=== PATIENT | male | born 1960 | race Caucasian/White ===

== ENCOUNTER 2016-10-31 20:43 | Emergency (ER) | payer OTHER ==
[~2016-10-31] VITALS: Ht 170.2 cm; Wt 70.3 kg
[2016-10-31 21:47] LABS: Basophils # (auto) 0.1 uL; Basophils % (auto) 0.8 % (0.0-2.0); CONDITION Y; Eosinophils # (auto) 0.4 uL; Eosinophils % (auto) 3.9 % (0.0-7.0); Hematocrit 48.1 % (41.0-53.0); Hemoglobin 16.4 g/dL (13.5-17.5); Lymphocytes # (auto) 3.6 uL; Lymphocytes % (auto) 34.4 % (10.0-50.0); Mean Corpuscular Hgb Conc. 34.1 g/dL (32.0-36.0); Mean Corpuscular Volume 93.8 fL (80.0-100.0); Mean Platelet Volume 7.9 fL (7.4-10.4); Monocytes # (auto) 0.9 uL; Monocytes % (auto) 8.7 % (0.0-12.0); Neutrophils # (auto) 5.5 uL; Neutrophils % (auto) 52.2 % (37.0-80.0); Platelet Count (auto) 393 10^3/uL (140-450); Red Cell Distribution Width 14.1 % (11.6-16.0); White Blood Cell 10.5 10^3/uL (4.4-10.8)
[2016-10-31 22:01] LABS: INR 0.92 (0.9-1.15); Partial Thromboplastin Time 27.5 sec (22.64-33.71)
[2016-10-31 22:04] LABS: Albumin 3.9 g/dL (3.4-5.0); Anion Gap 9 (5-15); Aspartate Aminotransferase 7 U/L (15-37); BUN/Creatinine Ratio 7.9; Blood Urea Nitrogen 7 mg/dL (7-18); Calcium 8.6 mg/dL (8.5-10.1); Carbon Dioxide 24 mmol/L (21-32); Chloride 106 mmol/L (98-107); GFR African American 114 mL/min; GFR Non-African American 94 mL/min; Glucose 82 mg/dL (74-106); Magnesium 2.4 mg/dL (1.6-2.6); Potassium 4.1 mmol/L (3.5-5.1); Sodium 139 mmol/L (136-145)
[2016-10-31 22:10] LABS: Alkaline Phosphatase 90 U/L (45-117); Bilirubin, Total 0.2 mg/dL (0.2-1.0); Total Protein 7.5 g/dL (6.4-8.2)
[2016-11-01 01:30] LABS: Urine Bilirubin Negative (Negative); Urine Blood Negative /uL (Negative); Urine Color Colorless (Yellow); Urine Glucose Normal (Normal); Urine Ketone Negative (Negative); Urine Nitrite Negative (Negative); Urine RBC 1 /hpf (0 - 3); Urine Urobilinogen Normal (Negative); Urine pH 6.5 (5.0-8.0)
[2016-11-01] MEDS ORDERED: ONDANSETRON HCL 4 MG/2 ML VIAL IV ONE (02:15)
[2016-11-01] MEDS ORDERED: MORPHINE SULFATE 4 MG/ML SYRG IV ONE (02:15)
[2016-11-01] MEDS ORDERED: HYDROmorphone HCL 2 MG/ML VL IV ONE ×2 (04:15)
[2016-11-01] MEDS ORDERED: LORazepam 2MG/ML-1ML VIAL IV ONE (07:00)
[2016-11-01 07:25] VITALS: BP 118/72
== END 2016-11-01 07:36 | disposition home or self-care (01) ==
LOC: ER 20:51
DX: R07.89 Other chest pain (principal); K29.70 Gastritis, unspecified, without bleeding; F17.210 Nicotine dependence, cigarettes, uncomplicated
CPT/HCPCS: 36415; 71020; 74176; 80053; 81001; 83690; 83735; 84443; 84484; 85025; 85610; 85730; 93005; 94761; 96374; 96375; 99285; J1170; J2060; J2270; J2405

== ENCOUNTER 2017-07-06 16:38 | Emergency (ER) | payer MEDICAID, OTHER ==
[~2017-07-06] VITALS: Ht 170.2 cm; Wt 74.8 kg
[2017-07-06 18:13] LABS: Basophils # (auto) 0.1 uL; Basophils % (auto) 0.9 % (0.0-2.0); Eosinophils # (auto) 0.4 uL; Eosinophils % (auto) 4.4 % (0.0-7.0); Hematocrit 46.1 % (41.0-53.0); Hemoglobin 15.6 g/dL (13.5-17.5); Lymphocytes # (auto) 3.1 uL; Lymphocytes % (auto) 31.7 % (10.0-50.0); Mean Corpuscular Hemoglobin 32.1 pg (28.0-32.0); Mean Corpuscular Hgb Conc. 33.9 g/dL (32.0-36.0); Mean Corpuscular Volume 94.7 fL (80.0-100.0); Monocytes % (auto) 10.1 % (0.0-12.0); Neutrophils # (auto) 5.2 uL; Neutrophils % (auto) 52.9 % (37.0-80.0); Nucleated Red Blood Cells % 0.1 %; Platelet Count (auto) 382 10^3/uL (140-450); Red Blood Cells 4.87 10^6/uL (4.5-5.90); Red Cell Distribution Width 13.8 % (11.8-14.3); White Blood Cell 9.7 10^3/uL (4.4-10.8)
[2017-07-06 18:20] LABS: Alanine Aminotransferase 16 U/L (16-61); Albumin 4.1 g/dL (3.4-5.0); Alkaline Phosphatase 88 U/L (45-117); Anion Gap 6 (5-15); Aspartate Aminotransferase 11 U/L (15-37); BUN/Creatinine Ratio 8.5; Bilirubin, Total 0.2 mg/dL (0.2-1.0); Blood Urea Nitrogen 8 mg/dL (7-18); Calcium 8.2 mg/dL (8.5-10.1); Carbon Dioxide 21 mmol/L (21-32); Chloride 114 mmol/L (98-107); GFR African American 107 mL/min; GFR Non-African American 89 mL/min; Glucose 98 mg/dL (74-106); Potassium 4.1 mmol/L (3.5-5.1); Sodium 141 mmol/L (136-145); Total Protein 7.5 g/dL (6.4-8.2)
[2017-07-06] MEDS ORDERED: LORazepam 0.5 MG TAB PO ONE (21:15)
[2017-07-07 00:18] VITALS: BP 150/90
== END 2017-07-07 00:18 | disposition home or self-care (01) ==
LOC: ER 16:39
DX: F41.9 Anxiety disorder, unspecified (principal); R07.9 Chest pain, unspecified; F17.210 Nicotine dependence, cigarettes, uncomplicated; R42 Dizziness and giddiness
CPT/HCPCS: 36415; 70450; 71046; 80053; 83735; 83880; 84484; 85025; 93005; 94761